=== PATIENT | male | born 1985 | race Caucasian/White ===

== ENCOUNTER 2018-02-23 09:50 | Day surgery (SDC) | payer BC ==
[2018-02-23 10:30] VITALS: BP 129/76; PULSE 80; RESP 16; TEMP 98.6; O2SAT 98
--- NOTE | 2018-02-23 11:16 | PD.RAD ---
Post US Procedure Prog Note Pre Procedure Diagnosis: (1) Head and neck lymphadenopathy Post Procedure Diagnosis: (1) Head and neck lymphadenopathy Procedure Date: Feb 23, 2018 Supervising Radiologist: Jonny Chatman Proceduralist/Assist: Merlyn Burt RDMS Estimated blood loss: minimal Anesthesia: Local Plan of Activity Patient to Unit: ROP[facility] See PACS Report for procedural detail/treatment Biopsy Imaging Guidance: Ultrasound Side: Right Specimen: Core Biopsy Plan to [facility] then discharge in 30 minutes. Jonny Chatman MD Feb 23, 2018 11:16
[2018-02-23] MEDS ORDERED: LIDOCAINE HCL 1% PF 30 ML VIAL ONE (11:27)
[2018-02-23 11:30] VITALS: BP 134/77; PULSE 72; RESP 18; TEMP 98.5
--- NOTE | 2018-02-23 11:40 | RADRPT ---
EXAM DATE: 02/23/2018 11:31 AM EDT AGE/SEX: 32 years / Male INDICATIONS: Enlarged lymph nodes bilateral neck. CLINICAL DATA: This is the patient's initial encounter. Patient reports that signs and symptoms have been present for 4 - 6 months and indicates a pain score of 0/10. MEDICAL/SURGICAL HISTORY: . Enlarged lymph nodes bilateral neck. None. COMPARISON: [facility], US SOFT TISSUE NECK, 12/18/2017. PO[facility], CT SOFT TISSUE NECK W/ CONTRAST, 8. . ORGAN: Right neck SPECIMEN(S): Two DEVICE(S): 16 gauge Temno needle Post procedure scanning reveals no hematoma or other complication. The possibility does exist that the tissue obtained will be non-diagnostic. If the sample is non-diag nostic, a repeat biopsy or surgical biopsy may need to be performed. TECHNIQUE: 1. Ultrasound guidance for needle biopsy. 2. Needle biopsy. 3. 4. . . The risks, benefits and alternatives to the procedure were explained and verbal and written consent w as obtained. The site was prepped in sterile fashion. Full sterile technique was used, including ca p, mask, sterile gloves and gown and a large sterile sheet. Hand hygiene and 2% chlorhexidine and/or betadine/alcohol prep was utilized per protocol for cutaneous antisepsis. The skin and subcutaneous tissues were infiltrated with local anesthetic solution. Sterile gel and sterile probe cover were u tilized for ultrasound guidance. With the patient on the ultrasound table, images were obtained. A needle was advanced into the right level 2 lymph node and the number of specimens as above obtained and submitted for pathologic evaluation. The patient tolerated the procedure well and left the ultrasound suite in stable condition. FINDINGS: Grayscale and Doppler ultrasound imaging demonstrates 2 lymph nodes which are borderline enlarged. On e is located in the left neck in the level 2 region measuring 2.4 x 0.7 cm. The other is in the right neck measuring 2.4 x 0.9 cm. Both demonstrate normal morphology without cortical irregularity and co ntain normal fatty carter. CONCLUSION: 1. Uncomplicated biopsy of the right level 2 lymph node. 2. Only 2 lymph nodes are identified, one on each side, at the level 2 station which are mildly prom inent. However, they demonstrate normal morphology and may be normal. Electronically signed by: Jonny Chatman MD 02/23/2018 11:39 AM EDT
[2018-02-23 11:45] VITALS: BP 138/76; PULSE 80; RESP 16; O2SAT 98
== END 2018-02-23 11:55 | disposition home or self-care (01) ==
LOC: HRAD 09:50 → HRIP 09:52 → HRAD 11:55
PROVIDERS: ATTEND Family Medicine
DX: R59.0 Localized enlarged lymph nodes (principal)
CPT/HCPCS: 38505; 76942; 88184; 88185; 88305